=== PATIENT | female | born 1995 | race Caucasian/White ===

== ENCOUNTER 2023-05-13 04:25 | Emergency (ER) | payer BC ==
[~2023-05-13] VITALS: Ht 165.1 cm; Wt 68.0 kg
[2023-05-13 04:43] VITALS: BP 114/66; PULSE 89; RESP 17; TEMP 99.2; O2SAT 100
[2023-05-13] MEDS ORDERED: ACETAMINOPHEN 325MG TABLET PO ONE (05:30)
[2023-05-13] MEDS ORDERED: TOPUD PO (06:10)
[2023-05-13] MEDS ORDERED: AMOX1TAB16 MT (06:10)
== END 2023-05-13 06:23 | disposition home or self-care (01) ==
LOC: ER 04:25
DX: J02.9 Acute pharyngitis, unspecified (principal); Z98.890 Other specified postprocedural states; Z20.822 Contact with and (suspected) exposure to COVID-19
CPT/HCPCS: 99283; 87426; 81025; 87430; 87070; C9803